=== PATIENT | male | born 1950 | race Caucasian/White ===

== ENCOUNTER → 2018-01-02 | Outpatient (REF) | LOC: ZLAB.WCH 15:54 | DX: Z01.89 Encounter for other specified special examinations (principal) | CPT/HCPCS: G0103 ==

== ENCOUNTER 2020-04-09 08:13 | Inpatient (IN) | payer MEDICARE, BC ==
[~2020-04-09] VITALS: Ht 185.4 cm; Wt 98.4 kg
[2020-04-16] VITALS (13 sets, daily range): BP systolic 128–158; BP diastolic 63–84; PULSE 78–90; TEMP 97.6–98.9
[2020-04-16] MEDS ORDERED: PRINIVIL20 MG PO (05:54)
[2020-04-16 06:05] LABS: HEMATOCRIT 40.1 % (42.0-52.0); HEMOGLOBIN 12.9 g/dl (13.5-18.0); MEAN CELL VOLUME 88 fl (80.0-100.0); MEAN CORPUSCULAR HEMOGLOBIN 28 pg (27.0-31.0); MEAN CORPUSCULAR HGB CONC 32 g/dl (33.0-37.0); MEAN PLATELET VOLUME 10.1 fl (7.4-10.4); PLATELET COUNT 181 K/mm3 (130-400); RED BLOOD COUNT 4.55 M/mm3 (4.20-5.60); REDCELL DISTRIBUTION WIDTH-CV 12.4 % (11.5-14.5)
--- NOTE | 2020-04-16 06:11 | NUR ---
The patient ambulated back to [facility] using a steady gait and appeared to tolerate the activity well. Vital signs obtained. Consent signed. 18G IV started in left forearm with one stick, LR infusing without difficulty. Heart Reg. Lungs clear. Bowel sounds audible. Call light is within reach. brought back to be at his bedside. Will continue to monitor the patient.
[2020-04-16 06:16] LABS: CALCIUM 9.4 mg/dL (8.4-10.2); CREATININE, serum 0.97 (0.66-1.25); POTASSIUM 3.8 mmol/L (3.4-5.0)
--- NOTE | 2020-04-16 13:00 | NUR ---
Patient alert and oriented, answers questions appropriately. See assessment. Abdomen soft, non tender, non distended. Lap sites to abdomen with edges well approximated, no redness or drainage noted. No flatus. ERAS protocol reviwed with patient.
--- NOTE | 2020-04-16 16:19 | NUR ---
Circular Knife Cutter Machine met with patient to discuss discharge planning. Patient's , Vy (ph#[phone]) is at bedside although she is on the phone. Patient lives between [facility] with his . Patient sees Dr. Christine for primary care and obtains medications from [facility] with no difficulties. Patient does not use any DME and reports independence with ADLS. Patient states his is his DPOA-HC and plans to return home upon discharge. SW will continue to follow as needed.
[2020-04-17 04:02] VITALS: BP 122/74; PULSE 74; TEMP 98.5
--- NOTE | 2020-04-17 04:38 | NUR ---
Report given by DAVID Mae. Patient resting in bed with no complaints. Patient has 6 lap sites that are open to air. Fluids are infusing.
--- NOTE | 2020-04-17 04:56 | NUR ---
Patient complaining of pain and requesting medication. Given oxycodone. Will reassess pain.
--- NOTE | 2020-04-17 05:58 | NUR ---
Patient resting in bed. Patient reports pain medicine helped and he is more comfortable.
[2020-04-17 06:37] LABS: CALCIUM 8.6 mg/dL (8.4-10.2); CREATININE, serum 0.97 (0.66-1.25); PHOSPHOROUS 2.9 mg/dL (2.5-4.5); POTASSIUM 4.5 mmol/L (3.4-5.0)
[2020-04-17 06:40] LABS: HEMATOCRIT 32.9 % (42.0-52.0); HEMOGLOBIN 10.5 g/dl (13.5-18.0)
--- NOTE | 2020-04-17 07:16 | NUR ---
Pt ambulated to restroom. Reports no pain at this time, though coughing and deep breathing is reported as being "still hard to do". Pt currently sitting at bedside in chair eating breakfast. Once in chair, IS device used. Encouragement of splenting when coughing and deep breathing. Pt verbally acknowledged teaching. Will continue to monitor.
[2020-04-17 07:21] VITALS: BP 131/70; PULSE 76; TEMP 97.2
--- NOTE | 2020-04-17 11:44 | NUR ---
First visit from the vp biology. No needs right now.
[2020-04-17 12:49] VITALS: BP 125/72; PULSE 80; TEMP 97.4
[2020-04-17 15:42] VITALS: BP 129/72; PULSE 78; TEMP 97.8
[2020-04-17 20:16] VITALS: BP 117/72; PULSE 84; TEMP 97.6
--- NOTE | 2020-04-17 21:00 | NUR ---
Patient resting in bed with complaints of not feeling well. Patient encouraged to get up and walk, but patient refused. Patient sat in chair for a little and said he felt some relief.
[2020-04-17 23:08] VITALS: BP 130/70; PULSE 77; TEMP 97.7
[2020-04-18 04:00] VITALS: BP 140/79; PULSE 76; TEMP 98.3
--- NOTE | 2020-04-18 04:51 | NUR ---
PATIENT REFUSED HIS TYLENOL THROUGHOUT THE NIGHT COMPLAINING OF NAUSEA. PATIENT UP WALKING AROUND HIS ROOM.
[2020-04-18 07:04] VITALS: BP 120/72; PULSE 77; TEMP 97.8
--- NOTE | 2020-04-18 07:29 | NUR ---
Patient sitting up in chair. Alert & oriented. Patient has no interest in breakfast. Reports nausea. He states he vomited x2 last night. Student nurse to give zofran for nausea. Patient reports continue passing flatus & stools. I asked patient to please notfiy staff of any stools, urine & emesis. We discussed importance of accurate I&O. Patient abdomen soft, but distended. Bowel are audible. Patient does also reports belching. He is chewing gum. Will continue to montior
--- NOTE | 2020-04-18 08:42 | NUR ---
spoke to . Plan of care reviewed with patient. He reports feeling better after Zofran, denies needing phenergan at this time
[2020-04-18 08:49] LABS: CALCIUM 8.9 mg/dL (8.4-10.2); CREATININE, serum 0.94 (0.66-1.25); PHOSPHOROUS 2.6 mg/dL (2.5-4.5); POTASSIUM 4.5 mmol/L (3.4-5.0)
--- NOTE | 2020-04-18 09:59 | NUR ---
Patient overall reports feeling better. Resting bed now. Ivf as ordered. He tolerated Juice. Had a small loose green tinged stool. Not dark in color.
[2020-04-18] MEDS ORDERED: ULTRAM 50MG TAB50 MG PO (11:38)
[2020-04-18 12:00] VITALS: BP 105/52; PULSE 88; TEMP 98.2
--- NOTE | 2020-04-18 12:49 | NUR ---
Pt showered independently. Linens changed, new gown and socks provided. After shower, pt returned to bed. No complications reported at this time.
--- NOTE | 2020-04-18 15:22 | NUR ---
Patient ambulated halls with his . He is wanting IVF off at this time. Continue to encouraged PO intake. Pain manged & nausea managed
[2020-04-18 16:10] VITALS: BP 120/60; PULSE 75; TEMP 98.6
--- NOTE | 2020-04-18 18:12 | NUR ---
Patient resting in bed. tolerated some po intake for dinner. denies nausea or pain
--- NOTE | 2020-04-18 20:50 | NUR ---
Pt. sitting up in bed at this time. Pt. is A&OX3, assessment complete. INT to lt. forarm patent. Pt. denies pain or nauesea. Abd. lap sites, x6 well approximated. Pt. denies further needs, call light within reach.
[2020-04-19 05:51] VITALS: BP 122/82; PULSE 79; TEMP 97.6
--- NOTE | 2020-04-19 06:01 | NUR ---
Pt. reports that he slept ok. Pt. is A&OX3. Pt. denies N/V through the night. Pt. denies further needs.
[2020-04-19 07:31] VITALS: BP 118/60; PULSE 74; TEMP 97.8
--- NOTE | 2020-04-19 08:35 | NUR ---
Patient up ambulating the halls independently, he is really hoping to discharge home. He did better with breakafst, ate some of his cream of wheat. He is interested in mac & cheese and a bannan for lunch, I will order this for him. Pain is managed. Denies nausea. abdomen soft, bowels audible, & he continues to pass flatus. Will motnior.
--- NOTE | 2020-04-19 11:53 | NUR ---
Patient ready for discharge. rounded & discharge orders obtained. Patient finishing lunch. Int dc. Script for ultram called into [facility]. Patient denies questions about low fiber diet. We reviewed incision care & signs & symptoms of when to call doctor. Patient to take him home with all belongings.
== END 2020-04-19 12:30 | disposition home or self-care (01) | DRG 330 ==
LOC: INPTSU 04-16 05:28 → SURG 04-16 07:30
PROVIDERS: Nurse Anesthetist, Certified Registered; ADMIT Surgery
PROC: 0DTF0ZZ Resection of Right Large Intestine, Open Approach (ICD-10-PCS; principal; 2020-04-16 07:30)
DX: C18.7 Malignant neoplasm of sigmoid colon (principal); C18.0 Malignant neoplasm of cecum; K56.7 Ileus, unspecified; K74.60 Unspecified cirrhosis of liver
CPT/HCPCS: A4314; A9284; J0690; J1100; J1170; J1650; J1885; J2250; J2370; J2405; J2704; J2795; J3010; J7050; J7120

== ENCOUNTER → 2020-12-11 | Outpatient (CLI) | payer MEDICARE, BC ==
[~2020-12-11] MED LIST: 00186-0372-20 IH; NORVASC 5MG5 MG/TAB PO; PRINIVIL20 MG PO; ULTRAM 50MG TAB50 MG PO
--- NOTE | 2020-12-11 11:28 | NUR ---
PATIENT HAD TO RESCHEDULE TEST, DUE TO HAVING CAFFEINE LESS THEN 8 HOURS BEFORE TEST.
== END ==
LOC: COL.PUL 10:55
DX: E88.01 Alpha-1-antitrypsin deficiency (principal)

== ENCOUNTER → 2020-12-19 | Outpatient (CLI) | payer MEDICARE, BC | LOC: COL.PUL 07:20 | DX: E88.01 Alpha-1-antitrypsin deficiency (principal) ==

== ENCOUNTER 2021-01-08 06:21 | Outpatient (CLI) | payer MEDICARE, BC ==
[~2021-01-08] VITALS: Ht 185.4 cm; Wt 96.5 kg
[2021-01-08] VITALS (16 sets, daily range): BP systolic 120–167; BP diastolic 72–810; PULSE 59–75; TEMP 98
--- NOTE | 2021-01-08 07:40 | NUR ---
Pt to ct per ambulation. Monitors applied. Pt positioned in supine position on ct table.
--- NOTE | 2021-01-08 08:05 | NUR ---
Specimen obtained by Dr Garcia and placed in formalin. Specimen labeled.
--- NOTE | 2021-01-08 11:00 | NUR ---
Dr Do rounded on pt, discharge papers finalized and reviewed with pt. INT DC'd with catheter intact. Pt remains free of complaint. Bandaid clean, dry and intact. He refuses wheelchair, is escorted out. waiting in car to drive pt home. DC papers sent with pt.
[2021-01-08 15:04] LABS: PROTHROMBIN TIME 11.4 SECONDS (9.7-12.8)
== END 2021-01-08 11:00 | disposition home or self-care (01) ==
LOC: COL.RAD 06:21
PROVIDERS: Physician Assistant
DX: E88.01 Alpha-1-antitrypsin deficiency (principal); R93.5 Abnormal findings on diagnostic imaging of other abdominal regions, including retroperitoneum; Z85.038 Personal history of other malignant neoplasm of large intestine
CPT/HCPCS: J3010

== ENCOUNTER 2022-09-01 05:19 | Day surgery (SDC) | payer MEDICARE, BC ==
[~2022-09-01] VITALS: Ht 185.4 cm; Wt 99.1 kg
[2022-09-01] VITALS (11 sets, daily range): BP systolic 96–136; BP diastolic 56–98; PULSE 50–66; TEMP 97.2–98.2
[2022-09-01] MEDS ORDERED: ADVIL200 MG PO (05:54)
[2022-09-01] MEDS ORDERED: TOPROL XL 25MG25 MG PO (05:54)
[2022-09-01 07:11] LABS: INR 1.2 (0.8-3.0); PROTHROMBIN TIME 13.3 SECONDS (9.7-12.8)
--- NOTE | 2022-09-01 11:58 | NUR ---
Patient arrived to the unit from PACU alert , bulky dressing to left knee intact. Ice pack applied to the affected area. Patient is able to wiggle toes and has sensation to left lower extremities. Patient is on oxymask 5L and oxgyen level is between 92-95%. Patient denies pain at this time. Patient oriented to room and the use of call browning. Ice water offered and instruction given to spouse on how to order menu.
--- NOTE | 2022-09-01 16:24 | NUR ---
Patient up and ambulating in the hallway with physical therapist.
[2022-09-02] MEDS ORDERED: TOPROL XL 50MG50 MG PO (00:03)
--- NOTE | 2022-09-02 00:16 | NUR ---
SHIFT REPORT FROM NILESH HERNANDEZ. PATIENT IN BED ON ROOM ENTRY. ALERT AND ORIENTED. HS MEDS PER EMAR. IV TO INT. DENIES PAIN CONTROL NEEDS. L KNEE CDI WITH BULKY MACK WRAP. AMBULATED IN HALLS WITH PCT. DENIES ADDITIONAL NEEDS. CALL LIGHT IN REACH.
[2022-09-02 03:37] VITALS: BP 103/59; PULSE 60; TEMP 98.1
[2022-09-02 04:02] VITALS: BP 106/62; PULSE 58; TEMP 97.8
--- NOTE | 2022-09-02 07:02 | NUR ---
Shift report received from the night nurse, DAVID Tomas, and resume patient care.
[2022-09-02 07:25] LABS: HEMOGLOBIN 12.8 g/dl (13.5-18.0)
[2022-09-02 07:28] LABS: HEMATOCRIT 36.7 % (42.0-52.0)
[2022-09-02 07:39] LABS: CALCIUM 8.5 mg/dL (8.4-10.2); CREATININE, serum 0.97 mg/dL (0.72-1.25); POTASSIUM 4.5 mmol/L (3.5-4.5)
[2022-09-02 07:45] VITALS: BP 122/71; PULSE 56; TEMP 97.4
--- NOTE | 2022-09-02 07:45 | NUR ---
Pt awake sitting on bench upon entering. Pt used walker to ambulate to chair, gait steady and pt tolerated well. Shift assessment done, see interventions. Pt has pain rating it a 2/10 but tolerable. Raad wrap to left knee is clean, dry, and intact. Pt has no other complaints at this time.
--- NOTE | 2022-09-02 09:26 | NUR ---
Patient awake upon entering the room. Patient has ice pack place in between knees. Patient denies pain at left knee. Pulses present in the affected area. Raad wrap dressing applied to the left knee intact. No drainage noted. See process intact for notes.
--- NOTE | 2022-09-02 09:47 | NUR ---
Raad wrap dressing, abd pad and kerlix roll removed from left knee. Incision intact, and no drainage noted at site. Aquacel dressing 3.5inch x 6inch applied to the incision area, and below the knee teri stocking applied on. Patient tolerated the procedure well.
--- NOTE | 2022-09-02 09:59 | NUR ---
Pt appears to be resting in recliner when entering the room with DAVID Martines. Pt left knee bulky dressing and sandoval wrap changed to aquacell and teri hose applied. Given aspirin and toradol per order for pain. at bedside, pt has no other complaints at this time.
--- NOTE | 2022-09-02 11:33 | NUR ---
Initial visit: Structural Analysis Engineer stopped by room on rounds. Pt was walking the lilly, working on Physical Therapy. Pt has no needs right now. Structural Analysis Engineer will follow up as needed.
[2022-09-02 11:34] VITALS: BP 117/61; PULSE 63; TEMP 98.2
[2022-09-02] MEDS ORDERED: NORCO 325 MG-51 TAB PO (12:57)
[2022-09-02] MEDS ORDERED: DOXYCYCLINE 10100 MG PO (12:57)
[2022-09-02] MEDS ORDERED: CELEBREX 200MG200 MG PO (12:57)
[2022-09-02] MEDS ORDERED: ASPIRIN 81M81 MG/TA2 PO (12:57)
[2022-09-02] MEDS ORDERED: ROXICODONE 55 MG/TAB PO (13:04)
--- NOTE | 2022-09-02 14:14 | NUR ---
Discharge instruction given, INT and telemonitor discontinued. Patient has no other questions. Patient escorted out of the unit via wheelchair to car at [id number].
== END 2022-09-02 14:06 | disposition home or self-care (01) ==
LOC: SDCO 05:19 → SURG 11:27 → SDCO 09-02 14:06
PROVIDERS: Orthopaedic Surgery; Registered Nurse
DX: M17.0 Bilateral primary osteoarthritis of knee (principal); I10 Essential (primary) hypertension; I49.3 Ventricular premature depolarization; I86.8 Varicose veins of other specified sites; I86.4 Gastric varices; K74.60 Unspecified cirrhosis of liver; E88.01 Alpha-1-antitrypsin deficiency; M17.11 Unilateral primary osteoarthritis, right knee; J47.9 Bronchiectasis, uncomplicated; R91.1 Solitary pulmonary nodule; Z85.038 Personal history of other malignant neoplasm of large intestine; Z79.899 Other long term (current) drug therapy; Z87.891 Personal history of nicotine dependence; Z90.49 Acquired absence of other specified parts of digestive tract
CPT/HCPCS: OP; A9284; C1713; C1776; J0690; J1100; J1170; J1885; J2270; J2370; J2405; J2704; J3010; J7030; J7120

== ENCOUNTER → 2024-04-17 | Outpatient (CLI) | payer MEDICARE, BC ==
[~2024-04-17] MED LIST changes: +ADVIL200 MG PO; +ASPI325T6 PO; +ASPIRIN 81M81 MG/TA2 PO; +CELEBREX 200MG200 MG PO; +DOXYCYCLINE 10100 MG PO; +NORCO 325 MG-51 TAB PO; +ROXICODONE 55 MG/TAB PO; +TOPROL XL 25MG25 MG PO; +TOPROL XL 50MG50 MG PO
== END ==
LOC: COL.RAD 08:26
DX: R93.7 Abnormal findings on diagnostic imaging of other parts of musculoskeletal system (principal); M54.16 Radiculopathy, lumbar region
CPT/HCPCS: A9503-JZ